=== PATIENT | female | born 1945 ===

== ENCOUNTER 2018-02-14 10:51 | Emergency (ER) | payer MEDICARE, OTHER ==
[2018-02-14 10:51] VITALS: BMI 29.5
[2018-02-14 11:08] VITALS: TEMP 98.6
--- NOTE | 2018-02-14 12:17 | C.PDOC ---
History Of Present Illness 72 y/o female with a PMHx of diverticulitis presents to the ED complaining of rectal bleeding since 2 days ago. She reports noticing dolly red blood in her stool, last episode was yesterday. Today there was no gross bleeding but patient noticed a small amount of blood when wiping. She also complains of generalized weakness for the past few days, worsened today. Patient notes she had some left- sided abdominal pain prior to the onset of bleeding. Currently she denies any nausea, vomiting, diarrhea, fever, or chills. Past surgical history is significant for hysterectomy and cholecystectomy. <Clara Clark - Last Filed: 02/14/18 13:07> History Per: Patient History/Exam Limitations: no limitations Onset/Duration Of Symptoms: Days Current Symptoms Are (Timing): Better Number Of Bleeding Episodes: Multiple: (last episode yesterday) Associated Symptoms: Rectal Bleeding <Clara Clark - Last Filed: 02/14/18 13:07> <Larry Ramírez DO - Last Filed: 02/14/18 16:50> Time Seen by Provider: 02/14/18 11:49 Chief Complaint (Nursing): GI Problem Past Medical History Reviewed: Historical Data, Nursing Documentation, Vital Signs Vital Signs: Last Vital Signs Temp 98.6 F 02/14/18 11:04 Pulse 102 H 02/14/18 11:04 Resp 16 02/14/18 11:04 BP 122/77 02/14/18 11:04 Pulse Ox 95 02/14/18 11:04 - Medical History PMH: Diverticulitis, HTN Denies: Chronic Kidney Disease Surgical History: Cholecystectomy Other Surgeries: Hysterectomy - [facility] ENDOSC POLYPECTOMY OF LG INTEST (07/22/13) Family History: States: No Known Family Hx - Social History Hx Tobacco Use: No Hx Alcohol Use: No Hx Substance Use: No - Immunization History Hx Tetanus Toxoid Vaccination: No Hx Influenza Vaccination: Yes Hx Pneumococcal Vaccination: No <Clara Clark - Last Filed: 02/14/18 13:07> Vital Signs: Last Vital Signs Temp 98.6 F 02/14/18 11:04 Pulse 86 02/14/18 16:39 Resp 18 02/14/18 16:39 BP 129/63 02/14/18 16:39 Pulse Ox 97 02/14/18 16:39 - [facility] Procedures ENDOSC POLYPECTOMY OF LG INTEST (07/22/13) <Larry Ramírez DO - Last Filed: 02/14/18 16:50> Review Of Systems Except As Marked, All Systems Reviewed And Found Negative. Constitutional: Positive for: Weakness (generalized). Negative for: Fever, Chills Cardiovascular: Negative for: Chest Pain Respiratory: Negative for: Cough, Shortness of Breath Gastrointestinal: Positive for: Abdominal Pain, Other (Rectal bleeding). Negative for: Nausea, Vomiting, Diarrhea, Hematemesis Neurological: Negative for: Weakness, Numbness, Change in Speech, Confusion, Dizziness <Clara Clark Last Filed: 02/14/18 13:07> Physical Exam - Physical Exam Appears: Non-toxic, No Acute Distress Skin: Warm, Dry, No Pale Head: Atraumatic, Normacephalic Eye(s): bilateral: Normal Inspection (no icterus), PERRL, EOMI Nose: Normal Neck: Normal ROM Chest: Symmetrical Cardiovascular: Rhythm Regular, No Murmur Respiratory: Normal Breath Sounds, No Rales, No Rhonchi, No Wheezing Gastrointestinal/Abdominal: Soft, Tenderness (over the LLQ), No Guarding, No Rebound Back: Normal Inspection Extremity: Bilateral: Atraumatic, Normal ROM Pulses: Left Dorsalis Pedis: Normal, Right Dorsalis Pedis: Normal Neurological/Psych: Oriented x3, Normal Speech, Normal Cranial Nerves, Other (No focal deficits) <Clara Clark Last Filed: 02/14/18 13:07> ED Course And Treatment O2 Sat by Pulse Oximetry: 95 (RA) Pulse Ox Interpretation: Normal <Clara Clark Last Filed: 02/14/18 13:07> - Laboratory Results Result Diagrams: 02/14/18 13:16 02/14/18 13:16 <Larry Ramírez DO - Last Filed: 02/14/18 16:50> Medical Decision Making Medical Decision Making: Plan: --Labs --CT scan --Bentyl 20mg IM Patient endorsed to Dr. Ramírez as of 13:00 <Clara Clark Last Filed: 02/14/18 13:07> Disposition - Disposition Disposition Time: 13:00 <Clara Clark Last Filed: 02/14/18 13:07> <Larry Ramírez DO - Last Filed: 02/14/18 16:50> - Disposition Referrals: [facility] [Outside] [facility] [Outside] Disposition: HOME/ ROUTINE Condition: STABLE Additional Instructions: LUANA ZUNIGA, thank you for letting us take care of you today. The emergency medical care you received today was directed at your acute symptoms. If you were prescribed any medication, please fill it and take as directed. It may take several days for your symptoms to resolve. Return to the Emergency Department if your symptoms worsen, do not improve, or if you have any other problems. Please contact your doctor or call one of the physicians/clinics you have been referred to that are listed on the Patient Visit Information form that is included in your discharge packet. Bring any paperwork you were given at discharge with you along with any medications you are taking to your follow up visit. Our treatment cannot replace ongoing medical care by a primary care provider outside of the emergency department. Thank you for allowing the [facility] team to be part of your care today. Follow up with the clinic this week for re-evaluation and further management. Prescriptions: Ciprofloxacin [Cipro] 500 mg PO BID #14 tab metroNIDAZOLE [Flagyl] 500 mg PO TID #21 tab Instructions: Acute Abdomen (Belly Pain) Forms: [employer] ([employer]) - Clinical Impression Clinical Impression: Abdominal pain, GI bleed - Scribe Statement The provider has reviewed the documentation as recorded by the Kyara Delaney Provider Attestation: All medical record entries made by the Sanamibe were at my direction and personally dictated by me. I have reviewed the chart and agree that the record accurately reflects my personal performance of the history, physical exam, medical decision making, and the department course for this patient. I have also personally directed, reviewed, and agree with the discharge instructions and disposition. <Clara Clark - Last Filed: 02/14/18 13:07> Physician Patient Turnover Patient Signed Over To: Larry Ramírez DO (pending imaging, labs) <Clara Clark - Last Filed: 02/14/18 13:07> Addendum Addendum: 02/14/18 Accession No. : [id number] Patient Name / ID : NADIA CRAFT / [id number] Exam Date : 02/14/2018 15:32:02 ( Approved ) Study Comment : Sex / Age : F / 72Y Creator : Trudi Abraham Dictator : Maurice Russo MD Development Editor : Cloth Stretcher : Maurice Russo MD Approver2 : Report Date : 02/14/2018 15:44:32 My Comment : Date of service: 02/14/2018 PROCEDURE: CT Abdomen and Pelvis with contrast HISTORY: LLQ PAIN GI Bleeding COMPARISON: None. TECHNIQUE: Contrast dose: 100 mL Visipaque 320 Radiation dose: Total exam DLP = 590.47 mGy-cm. This CT exam was performed using one or more of the following dose reduction techniques: Automated exposure control, adjustment of the mA and/or kV according to patient size, and/or use of iterative reconstruction technique. FINDINGS: LOWER THORAX: Unremarkable. LIVER: Unremarkable. No gross lesion or ductal dilatation. GALLBLADDER AND BILE DUCTS: Status post cholecystectomy PANCREAS: Unremarkable. No gross lesion or ductal dilatation. SPLEEN: Unremarkable. ADRENALS: Unremarkable. No mass. KIDNEYS AND URETERS: Unremarkable. No hydronephrosis. No solid mass. VASCULATURE: Unremarkable. No aortic aneurysm. No aortic atherosclerotic calcification or mural plaque present. BOWEL: Gonzáles colonic diverticulosis. No evidence of acute diverticulitis. Questionable mural thickening of the mid transverse colon. This is best seen on series 3, image 73 through 77. This may be artifact but evaluation with colonoscopy is advised on a nonemergent basis. No other abnormal bowel loops. No evidence of bowel obstruction. APPENDIX: Normal appendix. PERITONEUM: Unremarkable. No free fluid. No free air. LYMPH NODES: Unremarkable. No enlarged lymph nodes. BLADDER: Unremarkable. REPRODUCTIVE: Status post hysterectomy BONES: No acute fracture. Status post laminectomy and posterior fixation at L4-5. OTHER FINDINGS: None. IMPRESSION: Gonzáles colonic diverticulosis without evidence of diverticulitis. Questionable mural thickening of the mid transverse colon. Rule out colonic malignancy. Consider further evaluation with colonoscopy. Status post cholecystectomy and hysterectomy. Minor findings as above. ------ CT findings discussed with patient. No acute diverticulitis. Plan is to discharge patient home on course of paulino and ismael. Counseled regarding diagnosis and follow-up instructions. <Larry Ramírez DO - Last Filed: 02/14/18 16:50>
[2018-02-14 13:28] LABS: BASO % 0.7 % (0.0-2.0); EOS # 0.1 K/uL (0.0-0.7); EOS % 1.7 % (0.0-4.0); LYMPH # 1.4 K/uL (1.0-4.3); LYMPH % 19.7 % (20.0-40.0); MEAN CELL VOLUME 80.3 fL (81.0-99.0); MEAN CORPUSCULAR HEMOGLOBIN 25.4 pg (27.0-31.0); MEAN CORPUSCULAR HGB CONC 31.6 g/dL (33.0-37.0); MEAN PLATELET VOLUME 7.6 fL (7.2-11.7); MONO # 0.4 K/uL (0.0-0.8); MONO % 5.3 % (0.0-10.0); NEUT # 5.1 K/uL (1.8-7.0); NEUT % 72.6 % (50.0-75.0); RBC 4.01 Mil/uL (3.80-5.20); RED CELL DISTRIBUTION WIDTH 15.1 % (11.5-14.5); WHITE BLOOD COUNT 7.1 K/uL (4.8-10.8)
[2018-02-14 13:38] LABS: SQUAMOUS EPITHIAL 1 /hpf (0-5); URINE BACTERIA OCC (<OCC); URINE BILIRUBIN NEGATIVE (NEGATIVE); URINE BLOOD NEGATIVE (NEGATIVE); URINE CLARITY Hazy (Clear); URINE COLOR Yellow (YELLOW); URINE GLUCOSE (UA) NORMAL (Normal); URINE LEUKOCYTE ESTERASE 3+ Leu/uL (Negative); URINE PROTEIN NEGATIVE (NEGATIVE); URINE UROBILINOGEN NORMAL mg/dL (0.2-1.0)
[2018-02-14 13:38] LABS: HEMOGLOBIN 10.2 g/dL (11.0-16.0)
[2018-02-14 13:49] LABS: ALB/GLOB RATIO 1.4 (1.0-2.1); ALBUMIN 3.9 g/dL (3.5-5.0); ALT/SGPT 26 U/L (9-52); AST/SGOT 22 U/L (14-36); BLOOD UREA NITROGEN 19 mg/dL (7-17); CALCIUM 9.2 mg/dl (8.6-10.4); GFR NON-AFRICAN AMERICAN > 60; LIPASE 88 U/L (23-300)
[2018-02-14] MEDS ORDERED: Iodixanol 320 MG/ML 100 ML BOTTLE IV ONE (14:48)
--- NOTE | 2018-02-14 16:14 | CT ---
Date of service: 02/14/2018 PROCEDURE: CT Abdomen and Pelvis with contrast HISTORY: LLQ PAIN GI Bleeding COMPARISON: None. TECHNIQUE: Contrast dose: 100 mL Visipaque 320 Radiation dose: Total exam DLP = 590.47 mGy-cm. This CT exam was performed using one or more of the following dose reduction techniques: Automated exposure control, adjustment of the mA and/or kV according to patient size, and/or use of iterative reconstruction technique. FINDINGS: LOWER THORAX: Unremarkable. LIVER: Unremarkable. No gross lesion or ductal dilatation. GALLBLADDER AND BILE DUCTS: Status post cholecystectomy PANCREAS: Unremarkable. No gross lesion or ductal dilatation. SPLEEN: Unremarkable. ADRENALS: Unremarkable. No mass. KIDNEYS AND URETERS: Unremarkable. No hydronephrosis. No solid mass. VASCULATURE: Unremarkable. No aortic aneurysm. No aortic atherosclerotic calcification or mural plaque present. BOWEL: Gonzáles colonic diverticulosis. No evidence of acute diverticulitis. Questionable mural thickening of the mid transverse colon. This is best seen on series 3, image 73 through 77. This may be artifact but evaluation with colonoscopy is advised on a nonemergent basis. No other abnormal bowel loops. No evidence of bowel obstruction. APPENDIX: Normal appendix. PERITONEUM: Unremarkable. No free fluid. No free air. LYMPH NODES: Unremarkable. No enlarged lymph nodes. BLADDER: Unremarkable. REPRODUCTIVE: Status post hysterectomy BONES: No acute fracture. Status post laminectomy and posterior fixation at L4-5. OTHER FINDINGS: None. IMPRESSION: Gonzáles colonic diverticulosis without evidence of diverticulitis. Questionable mural thickening of the mid transverse colon. Rule out colonic malignancy. Consider further evaluation with colonoscopy. Status post cholecystectomy and hysterectomy. Minor findings as above.
[2018-02-14 16:43] VITALS: BP 129/63; PULSE 86; RESP 18; O2SAT 97
== END 2018-02-14 17:10 | disposition home or self-care (01) ==
LOC: C.ER 10:51
DX: K92.2 Gastrointestinal hemorrhage, unspecified (principal); R10.32 Left lower quadrant pain
CPT/HCPCS: 74177; 80053; 81001; 82948; 83690; 85025; 96372; 99285; J0500; Q9967